=== PATIENT | male | born 1970 | race Caucasian/White ===

== ENCOUNTER 2018-04-20 10:04 | Emergency (ER) | payer MEDICAID ==
[2018-04-20 10:11] VITALS: BP 141/86
[2018-04-20] MEDS ORDERED: OXYCODONE-ACETAMINOPHEN 5-325 MG TABLET PO ONE (10:38)
--- NOTE | 2018-04-20 10:42 | ER Document Report ---
ED General - General Chief Complaint: Foot Pain Stated Complaint: FOOT PAIN Time Seen by Provider: 04/20/18 10:33 Notes: 47-year-old male with hypertension presents with left foot pain "I have gout" says it is not clearing up since 3:30 in the morning severe pain in the left first metatarsal phalangeal joint same as prior. Has been noncompliant with both diet and meds for gout and does not have a primary care doctor. Also requesting refills on his blood pressure medicine. TRAVEL OUTSIDE OF THE [place] IN LAST 30 DAYS: No Past Medical History - Social History Smoking Status: Never Smoker Family History: None Review of Systems - Review of Systems Notes: REVIEW OF SYSTEMS GEN: Denies fever, chills, weight loss ENT: Denies sore throat, nasal discharge, ear pain EYES: Denies blurry vision, eye pain, discharge CV: Denies chest pain, palpitations, edema RESP: Denies cough, shortness of breath, wheezing GI: Denies abdominal pain, nausea, vomiting, diarrhea MSK: Left great toe pain, SKIN: Denies rash, skin lesions LYMPH: Denies swollen glands/lymph nodes NEURO: Denies headache, focal weakness or numbness, dizziness PSYCH: Denies depression, suicidal or homicidal ideation PHYSICAL EXAMINATION General: No acute distress, well-nourished Head: Atraumatic, normocephalic ENT: Mouth normal, oropharynx moist, no exudates or tonsillar enlargement Eyes: Conjunctiva normal, pupils equal, lids normal Neck: No JVD, supple, no guarding CVS: Normal rate, regular rhythm, no murmurs Resp: No resp distress, equal and normal breath sounds bilaterally GI: Nondistended, soft, no tenderness to palpation, no rebound or guarding Ext: Mild warmth but no redness, and pain on range of motion of the left metatarsal phalangeal joint Back: No CVA or midline TTP Skin: No rash, warm Lymphatic: No lymphadeopathy noted Neuro: Awake, alert. Face symmetric. GCS 15. Physical Exam - Vital signs Vitals: Temp Pulse Resp BP Pulse Ox 97.9 F 72 16 141/86 H 98 04/20/18 10:09 04/20/18 10:09 04/20/18 10:09 04/20/18 10:04/20/18 10:09 Course - Re-evaluation Re-evalutation: 04/20/18 10:39 Acute pain of the left first metatarsal pharyngeal joint same as prior likely gout given noncompliance and lack of medications. Needs refill on hypertension medicine. No evidence of redness or fever to suggest septic arthritis. Will give pain medicine in the ED discharged with colchicine prednisone, refill amlodipine benazepril and refer to primary care. I have discussed with the patient there likely diagnosis, aftercare plan, follow-up plans and my usual and customary return precautions. They verbalized understanding of this. - Vital Signs Vital signs: Temp Pulse Resp BP Pulse Ox 97.9 F 72 16 141/86 H 98 04/20/18 10:09 04/20/18 10:09 04/20/18 10:09 04/20/18 10:04/20/18 10:09 Discharge - Discharge Clinical Impression: Gout flare Qualifiers: Gout site: foot Gout etiology: unspecified cause Laterality: left Qualified Code(s): M10.9 - Gout, unspecified Condition: Good Disposition: HOME, SELF-CARE Instructions: Gout ([facility]), Gout Diet ([facility]) Prescriptions: Amlodipine Besylate/Benazepril [Amlodipine-Benazepril 5-20 mg] 1 cap PO DAILY #10 cap Colchicine 0.6 mg PO DAILY 7 Days #7 capsule Prednisone [Deltasone 20 mg Tablet] 20 mg PO DAILY #30 tablet Referrals: [facility] [Provider Group] - Follow up as needed
== END 2018-04-20 10:55 | disposition home or self-care (01) ==
LOC: ER 10:04
DX: M10.9 Gout, unspecified (principal); T50.906A Underdosing of unspecified drugs, medicaments and biological substances, initial encounter; Z91.128 Patient's intentional underdosing of medication regimen for other reason; Z91.14 Patient's other noncompliance with medication regimen; Z91.11 Patient's noncompliance with dietary regimen; I10 Essential (primary) hypertension
CPT/HCPCS: 99283